=== PATIENT | male | born 1975 | race Caucasian/White ===

== ENCOUNTER 2020-05-23 20:39 | Inpatient (IN) | payer OTHER ==
[2020-05-23] MEDS ORDERED: Morphine 4 MG/ML VIAL ONE ×2 (20:46→22:08)
[2020-05-23] MEDS ORDERED: Ondansetron PF 4 MG/2 ML Vial ONE ×2 (21:00→22:39)
[2020-05-23 21:12] LABS: #Basophils 0.1 thou/uL (0.0-0.2); #Eosinphils 0.1 thou/uL (0.0-0.7); #Lymphocytes 2.3 thou/uL (1.20-3.40); #Monocytes 0.7 thou/uL (0.11-0.59); #Neutrophils 9.8 thou/uL (1.40-6.50); %Basophils 0.4 % (0.0-1.0); %Eosinophils 0.5 % (0.0-10.0); %Lymphocytes 17.5 % (21.0-51.0); %Monocytes 5.1 % (0.0-10.0); %Neutrophils 76.4 % (42.0-75.0); Hemoglobin 15.1 g/dL (14.0-18.0); Mean Corpuscular HGB CONC 35.1 g/dL (32.0-36.0); Mean Corpuscular Hemoglobin 32.2 pg (27.0-31.0); Mean Corpuscular Volume 91.5 fL (78.0-98.0); Mean Platelet Volume 9.7 fL (7.4-10.4); Platelet Count 187 thou/uL (130-400); RBC Distribution Width 11.8 % (11.5-14.5); White Blood Cell (WBC) Count 12.9 thou/uL (4.8-10.8)
[2020-05-23 21:18] LABS: INR-International Normal Ratio 0.9; PTT 26.7 sec (22.9-36.1); Prothrombin Time 12.8 sec (12.0-14.7)
[2020-05-23 21:34] LABS: ALT (SGPT) 33 U/L (8-55); AST (SGOT) 27 U/L (5-34); Albumin 4.4 g/dL (3.5-5.0); Alkaline Phosphatase 92 U/L (40-110); Anion Gap 15 mmol/L (10-20); BUN (Urea Nitrogen) 15 mg/dL (8.9-20.6); Bilirubin, Total 0.4 mg/dL (0.2-1.2); Calc. Creatinine Clearance 0 mL/min (70-130); Calcium 8.9 mg/dL (7.8-10.44); Carbon Dioxide 24 mmol/L (22-29); Chloride 102 mmol/L (98-107); Globulin 3.2 g/dL (2.4-3.5); Glucose 110 mg/dL (70-105); Potassium 4.1 mmol/L (3.5-5.1); Protein, Total 7.6 g/dL (6.0-8.3); Sodium 137 mmol/L (136-145)
[2020-05-23] MEDS ORDERED: Dextrose 50% Abboject 50 ML SYRINGE SLOW IVP PRN (22:30)
[2020-05-23] MEDS ORDERED: hydrALAZINE 20 MG/ML VIAL SLOW IVP PRN (22:30)
[2020-05-23] MEDS ORDERED: Dextrose 5% in Water 1,000 ML IV PRN (22:30)
[2020-05-23] MEDS ORDERED: Morphine 2 MG/ML VIAL SLOW IVP PRN (22:30)
[2020-05-23] MEDS ORDERED: Ondansetron PF 4 MG/2 ML Vial IVP PRN (22:30)
[2020-05-23] MEDS ORDERED: Cyclobenzaprine 10 MG TAB PO PRN (22:36)
[2020-05-23] MEDS ORDERED: traMADol HCl 50 MG TAB PO PRN ×2 (22:38)
[2020-05-23] MEDS ORDERED: traMADol HCl 50 MG TAB ONE (22:39)
[2020-05-23] MEDS ORDERED: Acetaminophen 500 MG TAB ONE (22:39)
[2020-05-23] MEDS ORDERED: Ketorolac Tromethamine 30 MG/ML VIAL ONE (22:39)
[2020-05-24 00:09] LABS: Lactic Acid 1.4 mmol/L (0.5-2.2)
[2020-05-24] MEDS: Ketorolac Tromethamine 30 MG/ML VIAL IVP SCH ×4 (01:40→18:32)
[2020-05-24] MEDS: Acetaminophen 500 MG TAB PO SCH ×5 (01:41→20:08)
[2020-05-24] MEDS: Sodium Chloride 0.9% 1,000 ML IV SCH ×3 (01:46→16:14)
[2020-05-24] MEDS: Famotidine 20 MG TAB PO SCH ×2 (05:52→20:08)
[2020-05-24] MEDS ORDERED: diphenhydrAMINE 25 MG CAP PO SCH (06:45)
[2020-05-24] MEDS: Senokot S 8.6-50 MG TAB PO SCH ×2 (07:34→20:08)
[2020-05-24] MEDS: Polyethylene Glycol 3350 17 GM Packet PO SCH (07:34)
[2020-05-24] MEDS ORDERED: Clindamycin/D5W 900 MG in Premix Bag 1 BAG IVPB SCH (07:45)
[2020-05-24] MEDS ORDERED: Famotidine 20 MG TAB PO SCH (09:00)
[2020-05-24 09:15] LABS: SARS-CoV-2 PCR NAA for Saliva Not Detected (NotDetected)
[2020-05-24] MEDS ORDERED: Clindamycin/D5W 900 mg/50 ml Premix Bag ONE (14:04)
[2020-05-24] MEDS ORDERED: Fentanyl 100 MCG/2 ML VIAL ONE ×3 (14:53→17:47)
[2020-05-24] MEDS ORDERED: Scopolamine 1.5 mg/72 hour Patch ONE (14:53)
[2020-05-24] MEDS ORDERED: PROPOFOL 200 MG/20 ML VIAL ONE (16:22)
[2020-05-24] MEDS ORDERED: PHENYLEPHRINE-NS 100 MCG/ML 10 ML SYRINGE ONE (16:22)
[2020-05-24] MEDS ORDERED: Ondansetron PF 4 MG/2 ML Vial ONE (16:22)
[2020-05-24] MEDS ORDERED: Lidocaine 1% PF 5 ML VIAL ONE (16:22)
[2020-05-24] MEDS ORDERED: Dexamethasone 20 MG/5 ML VIAL ONE (16:22)
[2020-05-24] MEDS ORDERED: Ketorolac Tromethamine 30 MG/ML VIAL ONE (16:22)
[2020-05-24] MEDS ORDERED: Meperidine HCl/PF 25 MG/ML VIAL ONE (17:39)
[2020-05-24] MEDS ORDERED: Morphine 4 MG/ML VIAL ONE (18:25)
[2020-05-24] MEDS ORDERED: Cyclobenzaprine 10 MG TAB PO PRN (18:40)
[2020-05-24] MEDS: Ibuprofen 200 MG TAB PO SCH ×2 (18:57→20:09)
[2020-05-24] MEDS: Aspirin 81 mg Enteric Coated Tablet PO SCH (20:07)
[2020-05-24] MEDS: Clindamycin/D5W 900 MG in Premix Bag 1 BAG IVPB SCH (20:12)
[2020-05-25] MEDS: Ibuprofen 200 MG TAB PO SCH ×4 (05:30→13:57)
[2020-05-25 05:42] LABS: #Lymphocytes 1.5 thou/uL (1.20-3.40); #Monocytes 0.6 thou/uL (0.11-0.59); #Neutrophils 10.9 thou/uL (1.40-6.50); %Eosinophils 0.1 % (0.0-10.0); %Lymphocytes 11.3 % (21.0-51.0); %Monocytes 4.4 % (0.0-10.0); %Neutrophils 84.2 % (42.0-75.0); Hemoglobin 13.1 g/dL (14.0-18.0); Mean Corpuscular Hemoglobin 31.5 pg (27.0-31.0); Mean Corpuscular Volume 92.7 fL (78.0-98.0); Mean Platelet Volume 9.6 fL (7.4-10.4); Platelet Count 186 thou/uL (130-400); RBC Distribution Width 11.7 % (11.5-14.5); Red Blood Cell (RBC) Count 4.16 mill/uL (4.70-6.10); White Blood Cell (WBC) Count 12.9 thou/uL (4.8-10.8)
[2020-05-25] MEDS: Clindamycin/D5W 900 MG in Premix Bag 1 BAG IVPB SCH ×2 (05:43→13:58)
[2020-05-25] MEDS: Acetaminophen 500 MG TAB PO SCH ×2 (05:49→10:28)
[2020-05-25] MEDS: Sodium Chloride 0.9% 1,000 ML IV SCH ×2 (07:17→08:09)
[2020-05-25] MEDS: Senokot S 8.6-50 MG TAB PO SCH (08:11)
[2020-05-25] MEDS: Famotidine 20 MG TAB PO SCH (08:11)
[2020-05-25] MEDS: Polyethylene Glycol 3350 17 GM Packet PO SCH (08:11)
[2020-05-25] MEDS: Aspirin 81 mg Enteric Coated Tablet PO SCH (08:11)
[2020-05-25] MEDS ORDERED: Lactated Ringer's 1,000 ML IV SCH (08:45)
[2020-05-25] MEDS ORDERED: Morphine 2 MG/ML VIAL SLOW IVP PRN (14:45)
[2020-05-25 16:01] VITALS: BP 121/76; TEMP 98.3
== END 2020-05-25 16:00 | disposition home or self-care (01) | DRG 494 ==
LOC: ERS 20:39 → SURG A 22:35 → OBSVTOIN 22:35
PROVIDERS: ADMIT Specialist; ATTEND Specialist
PROC: 0QSG04Z Reposition Right Tibia with Internal Fixation Device, Open Approach (ICD-10-PCS; principal; 2020-05-24)
DX: S82.201A Unspecified fracture of shaft of right tibia, initial encounter for closed fracture (principal); Z20.822 Contact with and (suspected) exposure to COVID-19; K21.9 Gastro-esophageal reflux disease without esophagitis; V80.010A Animal-rider injured by fall from or being thrown from horse in noncollision accident, initial encounter; Y93.52 Activity, horseback riding; Z88.0 Allergy status to penicillin; Z79.899 Other long term (current) drug therapy
CPT/HCPCS: 29515; 36415; 71045; 76000; 80053; 80307; 83605; 85025; 85610; 85730; 87635; 96374; 96375; 96376; C1713; G0390; J1100; J1885; J2175; J2270; J2405; J2704; J3010; J3490; Q0163; U0003; U0005

== ENCOUNTER 2020-07-22 12:35 | Inpatient (IN) | payer OTHER ==
[2020-07-22] MEDS ORDERED: Clindamycin/D5W 900 mg/50 ml Premix Bag ONE (13:09)
[2020-07-22 13:17] LABS: #Basophils 0.1 thou/uL (0.0-0.2); #Eosinphils 0.1 thou/uL (0.0-0.7); #Lymphocytes 2.8 thou/uL (1.20-3.40); #Monocytes 0.7 thou/uL (0.11-0.59); #Neutrophils 9.2 thou/uL (1.40-6.50); %Basophils 0.5 % (0.0-1.0); %Eosinophils 0.5 % (0.0-10.0); %Lymphocytes 21.8 % (21.0-51.0); %Monocytes 5.4 % (0.0-10.0); %Neutrophils 71.7 % (42.0-75.0); Mean Corpuscular HGB CONC 34.4 g/dL (32.0-36.0); Mean Corpuscular Hemoglobin 31.3 pg (27.0-31.0); Mean Platelet Volume 9.5 fL (7.4-10.4); Platelet Count 208 thou/uL (130-400); RBC Distribution Width 11.9 % (11.5-14.5); Red Blood Cell (RBC) Count 4.79 mill/uL (4.70-6.10); White Blood Cell (WBC) Count 12.9 thou/uL (4.8-10.8)
[2020-07-22 13:38] LABS: ALT (SGPT) 27 U/L (8-55); AST (SGOT) 17 U/L (5-34); Albumin 4.3 g/dL (3.5-5.0); Alkaline Phosphatase 127 U/L (40-110); Anion Gap 14 mmol/L (10-20); BUN (Urea Nitrogen) 11 mg/dL (8.9-20.6); Bilirubin, Total 0.6 mg/dL (0.2-1.2); Calc. Creatinine Clearance 0 mL/min (70-130); Calcium 8.9 mg/dL (7.8-10.44); Carbon Dioxide 21 mmol/L (22-29); Chloride 102 mmol/L (98-107); Globulin 3.2 g/dL (2.4-3.5); Glucose 223 mg/dL (70-105); Potassium 3.8 mmol/L (3.5-5.1); Protein, Total 7.5 g/dL (6.0-8.3); Sodium 133 mmol/L (136-145)
[2020-07-22] MEDS ORDERED: Vancomycin HCl 1.75 GM in Sodium Chloride 0.9% 500 ML IVPB SCH (14:45)
[2020-07-22] MEDS ORDERED: VANCOMYCIN 1.75 GM/350 ML BAG 1.75 GM in Premix Bag 1 BAG IVPB SCH (14:45)
[2020-07-22] MEDS ORDERED: Dextrose 50% Abboject 50 ML SYRINGE SLOW IVP PRN (15:07)
[2020-07-22] MEDS ORDERED: Dextrose 5% in Water 1,000 ML IV PRN (15:07)
[2020-07-22] MEDS ORDERED: HumaLOG 300 UNITS/3 ML VIAL SC PRN (15:07)
[2020-07-22] MEDS ORDERED: Ondansetron PF 4 MG/2 ML Vial IVP PRN (15:07)
[2020-07-22] MEDS ORDERED: traMADol HCl 50 MG TAB PO PRN (15:14)
[2020-07-22 16:43] LABS: Hemoglobin A1c 5.5 % (4.0-6.0)
[2020-07-22 16:45] VITALS: BMI 39.3
[2020-07-22] MEDS: MEROPENEM 1 GM/50 ML 1 GM in Premix Bag 1 BAG IVPB SCH ×2 (18:26→21:32)
[2020-07-22] MEDS: Ibuprofen 200 MG TAB PO SCH (18:32)
[2020-07-22] MEDS: Acetaminophen 500 MG TAB PO SCH ×2 (18:33→23:17)
[2020-07-22] MEDS: traMADol HCl 50 MG TAB PO SCH ×2 (18:33→23:17)
[2020-07-22] MEDS: Famotidine 20 MG TAB PO SCH (21:17)
[2020-07-22] MEDS ORDERED: Meropenem 2 GM in Admixture Fee 1 EACH IVPB SCH (22:00)
[2020-07-22] MEDS: Clindamycin/D5W 900 MG in Premix Bag 1 BAG IVPB SCH (22:16)
[2020-07-22] MEDS: Vancomycin 1.5 GRAM/300 ML BAG 1.5 GM in Premix Bag 1 BAG IVPB SCH (23:10)
[2020-07-22] MEDS ORDERED: Lactated Ringer's 1,000 ML IV SCH (23:59)
[2020-07-23 00:18] LABS: SARS-CoV-2 PCR NAA for Saliva Not Detected (NotDetected)
[2020-07-23] MEDS: Ibuprofen 200 MG TAB PO SCH ×3 (02:00→17:39)
[2020-07-23] MEDS: Clindamycin/D5W 900 MG in Premix Bag 1 BAG IVPB SCH ×2 (05:11→14:52)
[2020-07-23] MEDS: MEROPENEM 1 GM/50 ML 1 GM in Premix Bag 1 BAG IVPB SCH ×3 (05:11→22:30)
[2020-07-23] MEDS: traMADol HCl 50 MG TAB PO SCH ×4 (06:12→20:07)
[2020-07-23] MEDS: Acetaminophen 500 MG TAB PO SCH ×4 (06:12→23:35)
[2020-07-23 06:14] LABS: #Eosinphils 0.2 thou/uL (0.0-0.7); #Lymphocytes 2.1 thou/uL (1.20-3.40); #Monocytes 0.9 thou/uL (0.11-0.59); #Neutrophils 7.4 thou/uL (1.40-6.50); %Basophils 0.2 % (0.0-1.0); %Eosinophils 1.5 % (0.0-10.0); %Lymphocytes 19.8 % (21.0-51.0); %Monocytes 8.8 % (0.0-10.0); %Neutrophils 69.7 % (42.0-75.0); Hemoglobin 13.5 g/dL (14.0-18.0); Mean Corpuscular HGB CONC 34.7 g/dL (32.0-36.0); Mean Corpuscular Volume 92.2 fL (78.0-98.0); Mean Platelet Volume 9.7 fL (7.4-10.4); Platelet Count 165 thou/uL (130-400); Red Blood Cell (RBC) Count 4.21 mill/uL (4.70-6.10); White Blood Cell (WBC) Count 10.6 thou/uL (4.8-10.8)
[2020-07-23 06:38] LABS: Anion Gap 11 mmol/L (10-20); BUN (Urea Nitrogen) 13 mg/dL (8.9-20.6); Calc. Creatinine Clearance 205 mL/min (70-130); Calcium 8.6 mg/dL (7.8-10.44); Carbon Dioxide 25 mmol/L (22-29); Chloride 105 mmol/L (98-107); Glucose 129 mg/dL (70-105); Magnesium 1.8 mg/dL (1.6-2.6); Phosphorus 3.3 mg/dL (2.3-4.7); Sodium 137 mmol/L (136-145)
[2020-07-23] MEDS ORDERED: Fentanyl 100 MCG/2 ML VIAL ONE ×2 (07:10→09:36)
[2020-07-23] MEDS ORDERED: Neomycin-Polymyxin 1 ML AMP ONE (07:36)
[2020-07-23] MEDS ORDERED: Midazolam HCl 2 mg/2 ml Vial ONE (07:49)
[2020-07-23] MEDS ORDERED: Scopolamine 1.5 mg/72 hour Patch ONE (07:49)
[2020-07-23] MEDS ORDERED: Dexamethasone 20 MG/5 ML VIAL ONE (08:21)
[2020-07-23] MEDS ORDERED: Lidocaine 1% PF 5 ML VIAL ONE (08:21)
[2020-07-23] MEDS ORDERED: PROPOFOL 200 MG/20 ML VIAL ONE (08:21)
[2020-07-23] MEDS ORDERED: Ondansetron PF 4 MG/2 ML Vial ONE (08:21)
[2020-07-23] MEDS: Famotidine 20 MG TAB PO SCH ×2 (10:10→20:05)
[2020-07-23] MEDS: Vancomycin 1.5 GRAM/300 ML BAG 1.5 GM in Premix Bag 1 BAG IVPB SCH ×3 (10:27→23:34)
[2020-07-23] MEDS ORDERED: Morphine 2 MG/ML VIAL SLOW IVP PRN (13:54)
[2020-07-23] MEDS ORDERED: Morphine 4 MG/ML VIAL SLOW IVP SCH (14:00)
[2020-07-23] MEDS: Gabapentin 300 MG CAP PO SCH (20:05)
[2020-07-23] MEDS: diphenhydrAMINE 25 MG CAP PO PRN (23:32)
[2020-07-24] MEDS: Ibuprofen 200 MG TAB PO SCH ×3 (04:00→18:07)
[2020-07-24] MEDS: traMADol HCl 50 MG TAB PO SCH ×4 (04:09→21:41)
[2020-07-24] MEDS: MEROPENEM 1 GM/50 ML 1 GM in Premix Bag 1 BAG IVPB SCH ×3 (05:34→21:42)
[2020-07-24] MEDS: diphenhydrAMINE 25 MG CAP PO PRN (05:47)
[2020-07-24] MEDS: Acetaminophen 500 MG TAB PO SCH ×4 (06:27→23:23)
[2020-07-24] MEDS: Vancomycin 1.5 GRAM/300 ML BAG 1.5 GM in Premix Bag 1 BAG IVPB SCH ×3 (08:16→23:23)
[2020-07-24] MEDS: Famotidine 20 MG TAB PO SCH ×2 (08:17→21:42)
[2020-07-24] MEDS: Enoxaparin Sodium 40 MG/0.4 ML SYRINGE SC SCH (08:17)
[2020-07-24] MEDS: Gabapentin 300 MG CAP PO SCH ×2 (08:18→21:42)
[2020-07-24] MEDS: Saccharomyces boulardii 250 MG CAP PO SCH (08:19)
[2020-07-24 15:16] LABS: Vancomycin, Trough 15.8 ug/mL
[2020-07-25] MEDS: Ibuprofen 200 MG TAB PO SCH ×2 (01:24→09:11)
[2020-07-25] MEDS: traMADol HCl 50 MG TAB PO SCH (03:07)
[2020-07-25] MEDS: Acetaminophen 500 MG TAB PO SCH ×2 (05:20→12:06)
[2020-07-25] MEDS: MEROPENEM 1 GM/50 ML 1 GM in Premix Bag 1 BAG IVPB SCH (05:20)
[2020-07-25 06:11] LABS: #Basophils 0.1 thou/uL (0.0-0.2); #Eosinphils 0.3 thou/uL (0.0-0.7); #Lymphocytes 4.2 thou/uL (1.20-3.40); #Monocytes 0.6 thou/uL (0.11-0.59); #Neutrophils 5.9 thou/uL (1.40-6.50); %Eosinophils 2.3 % (0.0-10.0); %Lymphocytes 37.8 % (21.0-51.0); %Monocytes 5.7 % (0.0-10.0); %Neutrophils 53.1 % (42.0-75.0); Hemoglobin 12.9 g/dL (14.0-18.0); Mean Corpuscular Hemoglobin 31.5 pg (27.0-31.0); Mean Corpuscular Volume 92.5 fL (78.0-98.0); Mean Platelet Volume 9.5 fL (7.4-10.4); Platelet Count 189 thou/uL (130-400); RBC Distribution Width 11.9 % (11.5-14.5); Red Blood Cell (RBC) Count 4.09 mill/uL (4.70-6.10)
[2020-07-25] MEDS ORDERED: traMADol HCl 50 MG TAB PO PRN (08:45)
[2020-07-25] MEDS ORDERED: Sulfameth/Trimethoprim DS 800-160mg TAB PO SCH (09:00)
[2020-07-25] MEDS: Gabapentin 300 MG CAP PO SCH (09:12)
[2020-07-25] MEDS: Saccharomyces boulardii 250 MG CAP PO SCH (09:13)
[2020-07-25] MEDS: Enoxaparin Sodium 40 MG/0.4 ML SYRINGE SC SCH (09:14)
[2020-07-25] MEDS: Vancomycin 1.5 GRAM/300 ML BAG 1.5 GM in Premix Bag 1 BAG IVPB SCH (09:16)
[2020-07-25] MEDS ORDERED: Rifampin 300 MG CAP PO SCH (10:00)
[2020-07-25 15:59] VITALS: BP 118/73; TEMP 98.4
[2020-07-25] MEDS ORDERED: Ciprofloxacin 500 MG TAB PO SCH (20:00)
== END 2020-07-25 17:53 | disposition home or self-care (01) | DRG 571 ==
LOC: ERS 12:35 → T4-A 15:15
PROVIDERS: ADMIT Surgery; ATTEND Surgery
PROC: 0JBN0ZZ Excision of Right Lower Leg Subcutaneous Tissue and Fascia, Open Approach (ICD-10-PCS; principal; 2020-07-23)
DX: L03.115 Cellulitis of right lower limb (principal); E87.1 Hypo-osmolality and hyponatremia; I96 Gangrene, not elsewhere classified; L02.415 Cutaneous abscess of right lower limb; Z20.822 Contact with and (suspected) exposure to COVID-19; R73.9 Hyperglycemia, unspecified; Z88.0 Allergy status to penicillin; Z90.89 Acquired absence of other organs; Z98.890 Other specified postprocedural states
CPT/HCPCS: 36415; 36416; 80048; 80053; 80202; 83036; 83735; 84100; 85025; 85652; 86140; 87040; 87070; 87077; 87186; 87205; 96365; 96367; J1100; J1650; J1815; J2185; J2250; J2405; J2704; J3010; J3370; J3490; J7030; Q0163; U0003; U0005

== ENCOUNTER 2022-01-29 19:22 | Emergency (ER) | payer OTHER, SELFPAY ==
[~2022-01-29 19:22] MED LIST: Iopamidol-370 76% 500 ML 1 ML ONE
[2022-01-29 21:08] LABS: #Basophils 0.1 thou/uL (0.0-0.2); #Eosinphils 0.1 thou/uL (0.0-0.7); #Lymphocytes 3.4 thou/uL (1.20-3.40); #Neutrophils 8.7 thou/uL (1.40-6.50); %Basophils 0.5 % (0.0-1.0); %Eosinophils 0.6 % (0.0-10.0); %Lymphocytes 25.7 % (21.0-51.0); %Monocytes 7.7 % (0.0-10.0); %Neutrophils 65.4 % (42.0-75.0); Hemoglobin 16.4 g/dL (14.0-18.0); Mean Corpuscular HGB CONC 34.2 g/dL (32.0-36.0); Mean Corpuscular Hemoglobin 31.4 pg (27.0-31.0); Mean Corpuscular Volume 91.8 fl (78.0-98.0); Mean Platelet Volume 9.1 fL (7.4-10.4); Platelet Count 199 10x3/uL (130-400); RBC Distribution Width 11.6 % (11.5-14.5); Red Blood Cell (RBC) Count 5.23 mill/uL (4.70-6.10); White Blood Cell (WBC) Count 13.3 10x3/uL (4.8-10.8)
[2022-01-29 21:25] LABS: ALT (SGPT) 45 U/L (8-55); AST (SGOT) 26 U/L (5-34); Albumin 4.4 g/dL (3.5-5.0); Alkaline Phosphatase 79 U/L (40-110); Anion Gap 15 mmol/L (10-20); BUN (Urea Nitrogen) 14 mg/dL (8.9-20.6); Bilirubin, Total 0.9 mg/dL (0.2-1.2); CK (CPK) 75 U/L (30-200); Calc. Creatinine Clearance 0 mL/min (70-130); Calcium 9.2 mg/dL (7.8-10.44); Carbon Dioxide 27 mmol/L (22-29); Chloride 101 mmol/L (98-107); Estimated GFR 107; Globulin 3.3 g/dL (2.4-3.5); Glucose 105 mg/dL (70-105); Lipase 15 U/L (8-78); Potassium 4.5 mmol/L (3.5-5.1); Protein, Total 7.7 g/dL (6.0-8.3); Sodium 138 mmol/L (136-145)
[2022-01-29] MEDS ORDERED: Acetaminophen 500 MG TAB ONE (22:38)
== END 2022-01-29 23:38 | disposition home or self-care (01) ==
LOC: ERS 19:22
DX: R50.9 Fever, unspecified (principal)
CPT/HCPCS: 71275; 80053; 82550; 83690; 83880; 84484; 85025; 93005; Q9967